=== PATIENT | male | born 1965 | race Caucasian/White ===

== ENCOUNTER → 2016-12-07 | Outpatient (CLI) | payer OTHER ==
[~2016-12-07] MED LIST: IOPAMIDOL (ISOVUE-300) 100 ML BTL IV ONE
--- NOTE | 2016-12-07 10:03 | CT ---
CT Soft Tissue Neck With Contrast Enhancement History: Papillary thyroid cancer with increasing tumor markers. Status post near total thyroidectomy in 2016. Comparison: Iodine-131 scan February 03, 2016. Thyroid ultrasound November 15, 2015. Technique: Axial computed tomographic images of the neck soft tissues obtained from the skull base to the thoracic inlet during the uneventful intravenous administration of 100 mL Isovue-300 contrast. D ose reduction techniques were utilized. Findings: The thyroidectomy bed appears normal, with no significant soft tissue identified in the reg ion, although fat planes are obscured, slightly limiting sensitivity. No pathologically enlarged lymp h nodes are identified. The parotid and submandibular glands are normal. The common and internal gutiérrez tid arteries are widely patent. Moderate vertebral and uncovertebral spondylosis is present from C5 t hrough C7, with mild to moderate spinal canal narrowing. Mild right neural foraminal stenosis is pres ent at C5-C6 and C6-C7 with mild left neural foraminal stenosis at C5-C6. There is a 4.0 x 2.5 cm 15 Hounsfield unit collection at the right margin of the trachea (series 3 image 171), suggesting benign fluid. No pulmonary nodules are present. Impression: 1. No CT evidence of recurrent or metastatic disease. 2. Additional findings as above.
--- NOTE | 2016-12-07 10:05 | DX ---
Chest, Two Views December 07, 2016, at 0742 Hours History: C73, primary thyroid cancer. Comparison: None. Findings: Cardiac silhouette is within normal range. No definite pulmonary nodules. A vertically plac ed 5 mm linear clip is noted in the left upper neck soft tissues just to the left of the T2 vertebral body. No pneumonia, congestive heart failure, pleural effusion, or pneumothorax. Impression: No acute pulmonary disease.
== END ==
LOC: FIMAGING 07:41
PROVIDERS: ATTEND Internal Medicine
DX: C73 Malignant neoplasm of thyroid gland (principal); M47.892 Other spondylosis, cervical region; M48.02 Spinal stenosis, cervical region
CPT/HCPCS: Q9967

== ENCOUNTER → 2017-01-07 | Outpatient (CLI) | payer OTHER | LOC: FIMAGING 12:15 | PROVIDERS: ATTEND Internal Medicine | DX: Z08 Encounter for follow-up examination after completed treatment for malignant neoplasm (principal); Z85.850 Personal history of malignant neoplasm of thyroid; Z90.09 Acquired absence of other part of head and neck | CPT/HCPCS: 78018; A9528 ==